=== PATIENT | male | born 1955 | race Caucasian/White ===

== ENCOUNTER → 2020-08-08 | Outpatient (CLI) | payer BC | LOC: HEART 5 08:31 | DX: R55 Syncope and collapse (principal); E11.9 Type 2 diabetes mellitus without complications; R94.39 Abnormal result of other cardiovascular function study | CPT/HCPCS: 78452; 93306; A9502 ==

== ENCOUNTER → 2020-09-24 | Outpatient (CLI) | payer BC | LOC: EXRD 11:20 → KOH-I 11:20 | DX: R22.1 Localized swelling, mass and lump, neck (principal) | CPT/HCPCS: 76536 ==